=== PATIENT | male | born 1955 | race African-American/Black ===

== ENCOUNTER 2016-08-07 05:21 | Day surgery (SDC) | payer MEDICARE ==
[~2016-08-07 05:21] MED LIST: ALBUTEROL SULF8.5 GM IH; BABY ASPIRIN81 MG PO; GABAPENTIN300 MG PO; GLIPIZIDE10 M1 PO; GLUCOTROL XL10 MG PO; GLYBURIDE5 M1 PO; LEVAQUIN; LEVEMIR100 U/ML SQ; LEVEMIR100 UNITS/ SC; LISINOPRIL20 MG PO; LOPRESSOR50 M1 PO; METFORMIN HCL1000 MG PO; METOPROLOL TART25 MG PO; MIRALAX12 EA PO; MIRALAX17 G2 PO; MULTIVITAMIN1 TAB PO; MULTIVITAMINS1 EAC6 PO; NORCO 10-325 T1 EACH PO; NORCO 7.5/3251 TAB PO; NOVOLOG100 U/M SQ; NOVOLOG100 UNIT/1 SQ; NOVOLOG100 UNITS/; OMEPRAZOLE20 M2 PO; PRINIVIL20 MG PO; PROMETHAZINE-C120 ML PO; PROMETHAZINE25 MG PO; PROTONIX40 M1 PO; PROTONIX40 M2 PO; REGLAN10 M2 PO; REGLAN5 M1 PO; VITAMIN C1000 MG PO
[2016-08-08 06:16] LABS: ANION GAP 12 mmol/L (0-20); BLOOD UREA NITROGEN 16 mg/dl (6-24); CALCIUM 8.9 mg/dl (8.5-10.5); CARBON DIOXIDE-VENOUS 27 mmol/L (22-32); CHLORIDE 109 mmol/l (96-110); CREATININE 1.15 mg/dl (0.60-1.30); GLUCOSE 170 mg/dL (70-110); HDL CHOLESTEROL 40 mg/dl (40-60); POTASSIUM 4.2 mmol/L (3.7-5.1); SODIUM 144 mmol/L (135-145); TRIGLYCERIDES 44 mg/dl (<149); VLDL 9 mg/dl (0-30); eGFR VALUE FOR BLACK 79 mL/Min
[2016-08-08 06:27] LABS: CHOLESTEROL <50 mg/dl (120-200); LDL CHOLESTEROL 2 mg/dl (0-99)
[2016-08-08] MEDS ORDERED: ASPIRIN81 M1 PO (13:08)
[2016-08-08] MEDS ORDERED: TYLENOL WITH C1 EACH PO (13:10)
[2016-08-08] MEDS ORDERED: TYLENOL EXTRA500 M1 PO (13:14)
[2016-08-08] MEDS ORDERED: MILK OF MAGNESIA PO (13:15)
[2016-08-08] MEDS ORDERED: LEVAQUIN500 M1 PO (13:18)
[2016-10-29] MEDS ORDERED: KEFLEX500 M4 PO (09:38)
[2016-10-29] MEDS ORDERED: NEURONTIN300 M1 PO (09:39)
== END 2016-08-08 14:00 ==
LOC: SRG 05:21 → SHSB 05:23 → ORW 07:34 → PACU 09:10 → 5WD 10:45
PROVIDERS: Nurse Practitioner Acute Care
PROC: 0FT44ZZ Resection of Gallbladder, Percutaneous Endoscopic Approach (ICD-10-PCS; principal; 2016-08-07)
PROC: BF10YZZ Fluoroscopy of Bile Ducts using Other Contrast (ICD-10-PCS; 2016-08-07)
DX: K80.10 Calculus of gallbladder with chronic cholecystitis without obstruction (principal); I10 Essential (primary) hypertension; I73.9 Peripheral vascular disease, unspecified; I87.8 Other specified disorders of veins; M06.9 Rheumatoid arthritis, unspecified; E11.40 Type 2 diabetes mellitus with diabetic neuropathy, unspecified; J45.909 Unspecified asthma, uncomplicated; F17.210 Nicotine dependence, cigarettes, uncomplicated; K21.9 Gastro-esophageal reflux disease without esophagitis; K44.9 Diaphragmatic hernia without obstruction or gangrene; I51.7 Cardiomegaly; R94.31 Abnormal electrocardiogram [ECG] [EKG]; K76.0 Fatty (change of) liver, not elsewhere classified; K31.84 Gastroparesis; K22.2 Esophageal obstruction; I34.1 Nonrheumatic mitral (valve) prolapse; Z79.4 Long term (current) use of insulin; Z79.899 Other long term (current) drug therapy; Z86.718 Personal history of other venous thrombosis and embolism; Z89.412 Acquired absence of left great toe; Z89.411 Acquired absence of right great toe; Z89.422 Acquired absence of other left toe(s)
CPT/HCPCS: A9537; C1894; C9290; J0690; J1815; J2765; J7030; J7050; Q9966